=== PATIENT | male | born 1955 | race Caucasian/White ===

== ENCOUNTER → 2023-12-06 07:55 | Outpatient (REF) | payer BC, SELFPAY | LOC: RCS 07:55 | PROVIDERS: ATTENDING PHYSICIAN Internal Medicine Cardiovascular Disease; FAMILY PHYSICIAN Family Medicine | DX: I42.9 Cardiomyopathy, unspecified (principal); I44.7 Left bundle-branch block, unspecified | CPT/HCPCS: 93306 ==

== ENCOUNTER 2023-12-13 06:09 | Day surgery (SDC) | payer BC, SELFPAY ==
[2023-12-06 06:26] VITALS: BMI 26.2
[2023-12-06 07:15] LABS: % Eosinophils 10.3 % (0-6); % Immature Granulocytes 0.3 % (0-0.5); % Lymphocytes 27.9 % (20.5-51.1); % Monocytes 11.8 % (1.7-9.3); % Neutrophils 48.7 % (42.2-75.2); Absolute Eosinophils 0.4 10^3/uL (0-0.7); Absolute Lymphocytes 1.1 10^3/uL (1.2-3.4); Absolute Monocytes 0.5 10^3/uL (0.1-0.6); Absolute Neutrophils 1.9 10^3/uL (1.4-6.5); Hematocrit 38.9 % (39.0-52.0); Hemoglobin 13.7 g/dL (13.0-18.0); Mean Corp Hgb Conc. 35.2 g/dL (33.0-37.0); Mean Corpuscular Hgb 31.6 pg (27.0-31.0); Mean Corpuscular Volume 89.6 fL (80.0-94.0); Mean Platelet Volume 10.2 fL (7.4-10.4); Nucleated Red Blood Cells % 0 % (-); Platelet Count 175 10^3/uL (130-400); Red Blood Cell Count 4.34 10^6/uL (4.70-6.10); Red Cell Dist. Width 13.2 % (11.5-14.5)
[2023-12-06 07:40] LABS: ALT (SGPT) 34 U/L (0-50); AST (SGOT) 48 U/L (17-59); Albumin 4.1 g/dl (3.5-5.0); Alkaline Phosphatase 93 U/L (38-126); Blood Urea Nitrogen 17 mg/dl (9-20); Calcium 9.2 mg/dl (8.4-10.2); Carbon Dioxide 26 mmol/L (22-30); Chloride 106 mmol/L (98-107); Estimated Creatinine Clearance 116 ml/min; Glucose 100 mg/dl (70-99); Potassium 4.1 mmol/L (3.5-5.1); Sodium 139 mmol/L (135-145); Total Bilirubin 0.7 mg/dl (0.2-1.3); eGFR > 60.00
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
[2023-12-13 06:27] VITALS: BMI 23.7
[2023-12-13 06:40] VITALS: BP 141/78
--- NOTE | 2023-12-13 07:48 | W.ICD.CONTRA ---
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
-
History of VA?: No
LV Function
Left ventricular function study result?: Ejection Fraction >/= 40%
ACEI/ARB/ARNI
Patient already on ACEI/ARB/ARNI: No
ACEI/ARB/ARNI Not Indicated: Left Ventricular EF >/= 40%
Beta-Pauline
Patient already on Beta Pauline: Yes
[2023-12-13 08:51] VITALS: BP 122/82
[2023-12-13 09:06] VITALS: BP 131/79
[2023-12-13 09:21] VITALS: BP 128/73
--- NOTE | 2023-12-13 16:28 | ITS.CL.ICD ---
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
Implantable Cardioverter Defibrillator
Procedure Report:
Date of Procedure: December 13, 2023.
Procedures: ICD Pulse Generator Explantation and ICD Pulse Generator Implantation.
Indication: ICD at the elective replacement indicator. Heart failure with improved LVEF. At the time of ICD implant on 10/05/2014 the patient had a nonischemic dilated cardiomyopathy with class 2-3 systolic heart failure and an LV ejection fraction
of 20% on maximally tolerated medical regimen with a left bundle branch block (QRS duration 174 ms) with a duration of heart failure symptoms greater than 9 months.
Performing physician: Filiberto Koenig MD, [facility].
Implant: ICD Pulse Generator: Medtronic; Model# [id number]; Serial# [id number].
Explanted ICD Pulse Generator (Implanted 10/05/2014): Medtronic: Model# [id number]; Serial# [id number].
Retained Leads (Implanted 10/05/2014):
Atrial Lead: Medtronic: Model# [id number]; Serial# [id number].
Right Ventricular Lead: Medtronic; Model# [id number]; Serial# [id number].
Left Ventricular Lead: Medtronic; Model# 4298-88cm; Serial# [id number].
Technique: A time out was performed. The procedure site was identified. The patient was anesthetized by the anesthesia service. Preoperative cefazolin was administered prior to the skin incision. The patient was prepped and draped in the usual
fashion. Local anesthetic was applied to the left prepectoral subcutaneous tissue. A 3 inch incision was made over the pulse generator with the PlasmaBlade. The capsule was entered with PlasmaBlade cautery. The old ICD pulse generator was explanted.
No cautery was applied to the lead system. The leads were appropriately attached to the new ICD pulse generator. The pocket was irrigated with antibiotic solution. Hemostasis was excellent. The device and leads were placed in the pocket. The
incision was closed in three layers with absorbable suture. Steri-strips and an Aquacel dressing were applied. The estimated blood loss was less than 5 mL. There were no complications. No fluoroscopy was used.
Lead Analysis:
RA lead: P: 2.1 mV; Threshold: 0.75 V @ 0.4 ms; Impedance: 399 ohms.
RV lead: R: 20 mV; Threshold: 1 V @ 0.4 ms; Impedance: 418 ohms. HVB 74 ohms.
LV lead: Threshold 1.25 V @ 0.4 ms; Impedance: 893 ohms.
Final Programming: VT/VF 188 bpm; Javi: DDDR 50-130 bpm.
Conclusion: Uncomplicated ICD change. The ICD system is MRI safe/conditional.
Recommendation: Routine post ICD care.
cc: Paul Powell MD and Magalys Spencer MD.
== END 2023-12-13 09:45 | disposition home or self-care (01) ==
LOC: CATH 06:09
PROVIDERS: ATTENDING PHYSICIAN Internal Medicine Cardiovascular Disease; FAMILY PHYSICIAN Family Medicine; OTHER PHYSICIAN Internal Medicine Cardiovascular Disease
DX: I50.22 Chronic systolic (congestive) heart failure (principal); I44.7 Left bundle-branch block, unspecified; J43.9 Emphysema, unspecified; Z87.19 Personal history of other diseases of the digestive system; K57.90 Diverticulosis of intestine, part unspecified, without perforation or abscess without bleeding; M19.90 Unspecified osteoarthritis, unspecified site; M51.26 Other intervertebral disc displacement, lumbar region; Z87.891 Personal history of nicotine dependence; D72.819 Decreased white blood cell count, unspecified; I42.0 Dilated cardiomyopathy
CPT/HCPCS: 33264; 36415; 80053; 85025; 93005; C1882

== ENCOUNTER → 2024-04-07 16:48 | Outpatient (REF) | payer BC, SELFPAY | LOC: RAD 16:48 | PROVIDERS: ATTENDING PHYSICIAN Internal Medicine Critical Care Medicine; FAMILY PHYSICIAN Family Medicine | DX: R91.1 Solitary pulmonary nodule (principal) | CPT/HCPCS: 71250 ==

== ENCOUNTER → 2024-10-02 16:44 | Outpatient (REF) | payer BC, SELFPAY | LOC: RAD 16:44 | PROVIDERS: ATTENDING PHYSICIAN Nurse Practitioner Family; FAMILY PHYSICIAN Family Medicine | DX: M25.562 Pain in left knee (principal) | CPT/HCPCS: 73564 ==

== ENCOUNTER 2024-10-25 11:56 | Inpatient (IN) | payer BC, SELFPAY ==
[2024-10-25] VITALS (11 sets, daily range): BP systolic 133–180; BP diastolic 79–97; BMI 24.7; BMI 23.6
--- NOTE | 2024-10-25 09:15 | ED.GENMED ---
Addendum entered and electronically signed by Yudith Patton MD 10/25/24 10:23:
cardiology evaluated patient. recommended hosptialist admission, covid flu swab, and dc azithrymycin. discussed with hospitalist who accepted.
Original Note:
History of Present Illness
General
Chief Complaint: AICD Problem
Time Seen by Provider: 10/25/24 09:09
History of Present Illness
History of Present Illness:
Patient is a 69-year-old male with history of CHF with biventricular ICD placement presenting to the emergency department with possible AICD shock. Patient states that he was brushing his teeth and each time he picked up his [place]pik he felt a kick
to his chest. His defibrillator has never gone off. He is unsure what feels like. He denies any lightheadedness dizziness. No chest pain. No shortness of breath. He does state that he has been sick with bronchitis and was started on Z-Ady and
prednisone. He does state that he feels much better since the beginning of the symptoms
Past History
Past History
ED Past Medical History: None
ED Past Surgical History: None
Social History
Tobacco: Non-smoker
Personal:
Living: with family
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
Family History
Family History: Negative Early CAD
Phy Exam
Physical Exam
Physical Exam:
GENERAL: in no acute distress
HEENT: normocephalic, extraocular movements intact, moist oral mucosa
NECK: normal inspection
RESPIRATORY: no respiratory distress, clear to auscultation bilaterally
CARDIOVASCULAR: regular rate and rhythm
ABDOMEN/: soft, non-distended, non-tender to palpation, no rebound or guarding
EXTREMITIES: non-tender, no edema/swelling
NEUROLOGIC: awake and alert, moves all extremities
SKIN: warm
Course
Orders/Labs/Results
Orders:
Orders
10/25/24 09:07
EKG [Electrocardiogram (*1)] Urgent
Reason for Study: Palpitations
EKG- Treatment ONCE
10/25/24 09:11
Interrogate Pacemaker- Treatment ONCE
10/25/24 09:15
CR Chest Portable - 1 View Urgent
Comment:
Reason For Exam: aicd placement
Reason Study Needs to be Portable: Patient Unstable
10/25/24 09:30
Basic Metabolic Panel Urgent
Complete Blood Count/With Diff Urgent
Magnesium Urgent
Thyroid profile [TSH Reflex To Free T4] Urgent
10/25/24 09:54
Amiodarone [Cordarone] 150 mg Dextrose 5%/Water 100 ml [D5w] 100 ml IV NOW
10/25/24 10:00
Amiodarone [Cordarone] 900 mg DEXTROSE 5% PVC-free BAG [D5W PVC-free BAG] 500 ml IV PER PROTOCOL
Initial Dose in mg/min:: 1
Duration of initial dose (hours):: 6
Subsequent dose in mg/min:: 0.5
Duration of subsequent dose (hours):: 18
Maximum dose in mg/min:: 1
Hold and notify provider if:: Heart rate < 60 BPM or SBP < 90 mmHg or MAP < 60 mmHg
Abnormal Lab Results
10/25/24
09:30
WBC 12.2 H 10^3/uL
(4.8-10.8)
RBC 4.55 L 10^6/uL
(4.70-6.10)
MCH 31.4 H pg
(27.0-31.0)
Abs Immat Gran (auto) 0.1 H 10^3/uL
(0-0.05)
Absolute Neuts (auto) 8.5 H 10^3/uL
(1.4-6.5)
Absolute Monos (auto) 1.2 H 10^3/uL
(0.1-0.6)
Immature Gran % 1.0 H %
(0-0.5)
Lymphocytes % 17.7 L %
(20.5-51.1)
Monocytes % 10.2 H %
(1.7-9.3)
Creatinine 0.6 L mg/dL
(0.7-1.3)
Glucose 108 H mg/dl
(70-99)
10/25/24 09:30
10/25/24 09:30
Vital Signs
Initial and Last Documented VS:
Initial Vital Signs
Temp Pulse Resp BP Pulse Ox
97.5 F 76 16 163/91 98
10/25/24 09:03 10/25/24 09:03 10/25/24 09:03 10/25/24 09:03 10/25/24 09:03
Last Documented Vital Signs
Temp Pulse Resp BP Pulse Ox
97.5 F 76 16 163/91 98
10/25/24 09:03 10/25/24 09:03 10/25/24 09:03 10/25/24 09:03 10/25/24 09:03
MDM/Problems Addressed
Differential Diagnosis Includes:
Patient is a 69-year-old male with history of CHF status post biventricular ICD placement presenting to the emergency department with AICD shock. Vitals are notable for heart rate in the 70s and exam shows a well-appearing comfortable man with
clear breath sounds bilaterally. Concern for arrhythmia versus inappropriate shock such as device oversensing or mechanical malfunction. He did have his ICD replaced last year by Dr. Koenig. Will check blood work EKG chest x-ray and interrogate
device.
*Critical Care Note
Total Time (30-74mins, 75-104mins- exclusive of procedures): Not Applicable
Update Note
Update Note:
I did receive a call from [facility] saying that patient had a single episode of V. tach that required [address] Spencer from cardiology who recommended amnio bolus and drip and admission to the cardiology service. Blood work
normal. Thyroid pending.
Chest x-ray per my interpretation with normal lead placement. No obvious opacities to suggest pneumonia.
ED Attending Note
-
Portions of this chart may have been created with voice recognition software.� Occasional wrong word or��sound alike� substitutions may have occurred due to the inherent limitations of voice recognition software.
Discharge Plan
Departure
Patient Disposition: Admit
Date of Disposition: 10/25/24
Time of Disposition: 10:14
Presentation/result/management discussed w/ accepting MD/DO: cardiology
Discharge Problem:
V-tach
Prescriptions:
No Action
aspirin 81 MG tablet,delayed release (DR/EC)
81 mg PO DAILY Qty: 0 0RF
Rx Instructions:
HOLD aspirin until seen in office for wound check appointment
multivitamin Tablet
1 tab PO DAILY
ascorbic acid (vitamin C) [Vitamin C] 500 mg Tablet
500 mg PO DAILY
zinc
1 tab PO DAILY
carvedilol 6.25 mg Tablet
6.25 mg PO BID
ibuprofen 800 mg Tablet
800 mg PO Q8H PRN (Reason: pain)
promethazine-codeine 6.25-10 mg/5 mL Syrup
5 ml PO Q6H PRN (Reason: cough)
albuterol sulfate 90 mcg/actuation Hfa Aerosol Inhaler
2 puff INHALATION Q6H PRN (Reason: sob)
cephalexin 500 mg tablet
500 mg PO Q8H Qty: 3 0RF
Referrals:
Paul Powell MD [Family Provider] -
Interventions
Interventions:
*Risk Screen - Suicide Last Done: 10/25/24 09:03
*Neglect/Abuse Screening Last Done: 10/25/24 09:03
*ED COVID-19 Vaccine History Last Done: 10/25/24 09:11
Discharge Date and Time
Print Language: JAPANESE
[2024-10-25 09:54] LABS: % Basophils 0.3 % (0-2); % Eosinophils 0.8 % (0-6); % Lymphocytes 17.7 % (20.5-51.1); % Monocytes 10.2 % (1.7-9.3); Absolute Eosinophils 0.1 10^3/uL (0-0.7); Absolute Immature Granulocytes 0.1 10^3/uL (0-0.05); Absolute Lymphocytes 2.2 10^3/uL (1.2-3.4); Absolute Monocytes 1.2 10^3/uL (0.1-0.6); Absolute Neutrophils 8.5 10^3/uL (1.4-6.5); Hematocrit 40.9 % (39.0-52.0); Hemoglobin 14.3 g/dL (13.0-18.0); Mean Corpuscular Hgb 31.4 pg (27.0-31.0); Mean Corpuscular Volume 89.9 fL (80.0-94.0); Mean Platelet Volume 9.6 fL (7.4-10.4); Nucleated Red Blood Cells % 0 % (-); Platelet Count 250 10^3/uL (130-400); Red Blood Cell Count 4.55 10^6/uL (4.70-6.10); Red Cell Dist. Width 12.5 % (11.5-14.5); White Blood Cell Count 12.2 10^3/uL (4.8-10.8)
[2024-10-25 10:06] LABS: Blood Urea Nitrogen 10 mg/dl (9-20); Calcium 9.6 mg/dl (8.4-10.2); Carbon Dioxide 26 mmol/L (22-30); Chloride 104 mmol/L (98-107); Estimated Creatinine Clearance 122 ml/min; Glucose 108 mg/dl (70-99); Magnesium 1.9 mg/dl (1.6-2.3); Potassium 3.9 mmol/L (3.5-5.1); Sodium 138 mmol/L (135-145); eGFR > 60.00
[2024-10-25] MEDS: CORDARONE 518 MG IV (10:25)
[2024-10-25] MEDS: CORDARONE 103 MG IV (10:29)
[2024-10-25 11:08] LABS: Free T4 1.06 ng/dl (0.78-2.19)
[2024-10-25 11:09] LABS: COVID-19 Antigen Negative (Negative)
--- NOTE | 2024-10-25 11:41 | HPS.HSE ---
Family Physician
-
Family Physician: Paul Powell
Chief Complaint
-
Defibrillator shock
History of Present Illness
Patient is a 69-year-old male who had an abnormal EKG 11 years ago and after workup was found to have a cardiomyopathy with an ejection fraction of 20% which required a defibrillator placement at that time. He has had no issues for the past 11
years and does not even know what the shock of the defibrillator would feel like. Today while brushing his teeth he had 2 episodes of feeling like he was kicked in the chest stating that his defibrillator went off. He has never had any previous
issues. Defibrillator interrogation showed 2 episodes of V. tach. He denied chest pain or shortness of breath. Of note, he was fighting an upper respiratory infection and has had a cough all week. Saturday he was started on a azithromycin and
Saturday started a prednisone taper. He is being admitted for evaluation of his defibrillator shocks and V. tach.
Medical History
Past Medical History
Past Medical History: Reports Other
Additional Past Medical History:
Chronic obstructive pulmonary disease along with pulmonary nodules from [facility] in 2020
Cardiomyopathy with an ejection fraction of 20%--of note, he denies any heart failure symptoms.
Past Surgical History: Reports Other
Additional Past Surgical History:
Unknown
Social History
Tobacco: Former Smoker (Quit 25 years ago)
Alcohol: Daily (Patient states that he drinks a couple beers per day)
Drug: None
Personal:
Living: With Family
Family History
Family History: Other (Mother has heart issues, father of prostate cancer)
Allergies / Home Medications
Allergies reflects when Allergies were last updated in [email or web address].
Home Medications with original date entered in [email or web address]
Allergy/Medication List:
Allergies
Allergy/AdvReac Type Severity Reaction Status Date / Time
No Known Allergies Allergy Verified 10/25/24 09:02
Home Medications
aspirin 81 mg tablet,delayed release 81 mg PO DAILY ##0 10/06/14
ascorbic acid (vitamin C) 500 mg tablet (Vitamin C) 500 mg PO DAILY 12/03/23
multivitamin 1 tab PO DAILY 12/03/23
zinc 1 tab PO DAILY 12/03/23
albuterol sulfate 90 mcg/actuation aerosol inhaler 2 puff inhalation Q6H PRN sob 12/13/23
carvedilol 6.25 mg tablet 6.25 mg PO BID 12/13/23
cephalexin 500 mg tablet 500 mg PO Q8H #3 tabs 12/13/23 --not taking
ibuprofen 800 mg tablet 800 mg PO Q8H PRN pain 12/13/23
promethazine 6.25 mg-codeine 10 mg/5 mL syrup 5 ml PO Q6H PRN cough 12/13/23--not taking
does give him vitamin D during the winter months
Started on azithromycin (Z-Ady and prednisone taper) Saturday and Saturday respectively
Medication list has not been reconciled--I myself did go over medications with him
Review of Systems
-
History Source: Patient
A 12 point ROS was completed and negative except as noted: Yes
Constitutional: Reports No Symptoms
EENT: Reports No Symptoms
Respiratory: Reports Cough
Cardiac: Reports No Symptoms and Other (Defibrillator shock); Denies Chest Pain or Diaphoresis
Abdomen/GI: Reports No Symptoms
: Reports No Symptoms
Musculoskeletal: Reports No Symptoms
Skin: Reports No Symptoms
Neurological: Reports No Symptoms; Denies Dizzy or Headache
Psych: Reports No Symptoms
Physical Exam
Vital Signs
Vital Signs
Temp Pulse Resp BP Pulse Ox
97.5 F 67 16 140/85 95
10/25/24 09:03 10/25/24 10:30 10/25/24 10:30 10/25/24 10:00 10/25/24 10:30
Physical Exam
General: Well Developed, Well Nourished and No Apparent Distress
HEENT: NormoCephalic and Anicteric; No Oxygen
Respiratory: Clear; No Wheezes, Rales or Rhonchi
Cardiac: S1/S2 and Regular Rhythm; No Murmur
GI: Soft, Non Tender, Non Distended and Normal Bowel Sounds
Musculoskeletal: No Clubbing, No Cyanosis and No Edema
Skin: Warm
Neuro: Awake
Psych: Calm
Laboratory Results
-
10/25/24 09:30
10/25/24 09:30
Impression/Plan
-
Patient is a 69-year-old male
V. tach with defibrillator shock--interrogation reveals V. tach as mentioned, appreciate cardiology--admit to IVU--starting amiodarone drip--cardiac cath tomorrow
Recent upper respiratory infection--stop azithromycin--continue prednisone taper with albuterol nebs as needed--would hold on any antibiotic therapy as this is likely viral
Cardiomyopathy with ejection fraction of 20%--presumed ischemic, although this was 11 years ago--patient does not have any symptoms of heart failure with reduced ejection fraction (swelling, shortness of breath) and in fact he is not on a diuretic
at baseline--follow for now
COPD/pulmonary nodule--from COVID 2020--does see pulmonary here if needed
DVT prophylaxis--Lovenox
CODE STATUS--full code
--- NOTE | 2024-10-25 11:45 | CON.CAR ---
Consultation
Consultation Request
Date/Time Consultation Requested: 10/25/24
Date/Time Consultation Performed: 10/25/24
Requesting Provider: Dr. Becerra
Performing Provider: Dr. Spencer (primary railway head tender as well)
Reason for Consultation: Electric shock and just
Medical History
-
Chief Complaint: Electric shock in his chest x 2 this morning
History of Present Illness:
69-year-old gentleman with a past medical history of nonischemic cardiomyopathy with recovered ejection fraction, BiV ICD, and prior left bundle branch block was in his usual state of health until last week when he had fatigue, subjective fever and
cough productive of thick sputum at times. He saw his primary care doctor in evaluation and was started on azithromycin. This was done on Saturday, however he still had symptoms so was started on a set prednisone taper yesterday. He denies any
orthopnea, PND, chest pain or lower extremity edema. This morning while brushing his teeth with an electronic toothbrush he felt a electric shock in his chest that then repeated several seconds later. He perceived this to be his defibrillator
firing. Currently, he is feeling better without any complaints of chest pain, shortness of breath. He finally started to feel better from a cough standpoint when he started his steroid taper.
Past Medical History
Past Medical History: CHF (Nonischemic cardiomyopathy r with recovered EF) and COPD
Past Surgical History: Other (Medtronic BiV ICD)
Social History
Tobacco: Former Smoker
Alcohol: Daily (Couple of beers a day)
Living: With Family
Family History
Family History: Reviewed & Not Pertinent
Allergies / Home Medications
Allergy/AdvReac Type Severity Reaction Status Date / Time
No Known Allergies Allergy Verified 10/25/24 09:02
�Medication �Instructions �Recorded �Confirmed �Type
aspirin 81 mg tablet,delayed 81 mg PO DAILY ##0 10/06/14 12/13/23 Rx
release
ascorbic acid (vitamin C) 500 mg 500 mg PO DAILY 12/03/23 12/13/23 History
tablet (Vitamin C)
multivitamin 1 tab PO DAILY 12/03/23 12/13/23 History
zinc 1 tab PO DAILY 12/03/23 12/13/23 History
albuterol sulfate 90 mcg/actuation 2 puff inhalation Q6H PRN sob 12/13/23 12/13/23 History
aerosol inhaler
carvedilol 6.25 mg tablet 6.25 mg PO BID 12/13/23 12/13/23 History
cephalexin 500 mg tablet 500 mg PO Q8H #3 tabs 12/13/23 Rx
ibuprofen 800 mg tablet 800 mg PO Q8H PRN pain 12/13/23 12/13/23 History
promethazine 6.25 mg-codeine 10 5 ml PO Q6H PRN cough 12/13/23 12/13/23 History
mg/5 mL syrup
Review of Systems
-
All other systems: Negative unless noted
Physical Exam
Vital Signs
Temp Pulse Resp BP Pulse Ox
97.5 F 65 24 144/96 96
10/25/24 09:03 10/25/24 11:15 10/25/24 11:34 10/25/24 11:00 10/25/24 11:15
Lab Results
10/25/24 09:30
10/25/24 09:30
Physical Exam
General: Well Developed, Well Nourished, No Apparent Distress, Comfortable and Respiratory Distress
HEENT: Normocephalic and Anicteric
Respiratory: Clear and Non Labored Respirations; Negative Wheezes, Crackles or Rhonchi
Cardiac: S1/S2 and Regular Rhythm; Negative Murmur, Rub or Peripheral Edema
GI: Non Tender and Non Distended
Neuro: AO x 3
Impression / Plan
-
69-year-old gentleman with past medical history of recovered nonischemic cardiomyopathy with a BiV ICD, prior his left bundle branch block and recent treatment for acute bronchitis with Z-Ady and prednisone presented with defibrillation x 2 this
morning.
#VT status post 2 appropriate ICD shocks:
-this is a threat to his life
-Will start IV bolus and amiodarone drip
-Azithromycin may have been contributing, would avoid moving forward
-Keep K and mag replete, will check mag
-N.p.o. after midnight for cardiac catheterization.
-Echo
#NICMY:
-no CHF
-Will update echo
-will increase bb
-further GDMT based on echo
# URI:
-would defer treatment to medicine
-please avoid azithromycin
Data Reviewed
-
EKG: Tracing Personally Visualized and interpreted (EKG shows a sensed ventricular paced) and Other (Device interrogation shows ventricular tachycardia appropriately treated needing 2 shocks to be treated.)
Radiology: Image Personally Visualized and interpreted (BiV ICD with leads in place no infiltrate or heart failure)
--- NOTE | 2024-10-25 14:49 | PTCARENOTE ---
Patient received from ED. Amino gtt infusing RAC #[id number]. Denies pain. V-paced on telemetry HR 80, BP 165/82 95% on room air. Occasional moist cough, lungs clear. Troponin and EKG collected. Eating lunch, call patel in reach
[2024-10-25 15:37] LABS: Troponin I 0.309 ng/ml
--- NOTE | 2024-10-25 15:54 | PTCARENOTE ---
troponin 0.309, Dr. Becerra notified
--- NOTE | 2024-10-25 16:09 | PTCARENOTE ---
IV placed in right forearm for amiodarone gtt, removed previous IV in right AC
[2024-10-25] MEDS: DELTASONE 40 MG PO (16:13)
[2024-10-25] MEDS: LOVENOX 40 MG SC (17:42)
[2024-10-25 18:31] LABS: Troponin I 0.215 ng/ml
[2024-10-25] MEDS: COREG 6.25 MG PO (19:59)
[2024-10-25 20:46] LABS: Troponin I 0.132 ng/ml
--- NOTE | 2024-10-25 21:04 | PTCARENOTE ---
Received pt @ change of shift. AAOx3. BP elevated (172/97), other VSS. Amio gtt running @ 0.5 mg/min (16.7 mL/hr) through right forearm. Discussed plan of care for evening/morning. Verbalizes understanding of NPO @ midnight for cath in AM. Call patel
within reach.
[2024-10-26] VITALS (14 sets, daily range): BP systolic 101–161; BP diastolic 67–95; BMI 23.9
[2024-10-26] MEDS: VENTOLIN NEBULES 1.25 MG INH (01:40)
[2024-10-26] MEDS: ROBITUSSIN AC 5 ML PO (02:02)
[2024-10-26 03:06] LABS: Hemoglobin 13.6 g/dL (13.0-18.0); Mean Corp Hgb Conc. 34.9 g/dL (33.0-37.0); Mean Corpuscular Hgb 31.7 pg (27.0-31.0); Mean Corpuscular Volume 90.9 fL (80.0-94.0); Mean Platelet Volume 10.3 fL (7.4-10.4); Platelet Count 253 10^3/uL (130-400); Red Blood Cell Count 4.29 10^6/uL (4.70-6.10); Red Cell Dist. Width 12.5 % (11.5-14.5); White Blood Cell Count 10.6 10^3/uL (4.8-10.8)
[2024-10-26 03:28] LABS: ALT (SGPT) 36 U/L (0-50); Albumin 3.7 g/dl (3.5-5.0); Calcium 9.4 mg/dl (8.4-10.2); Carbon Dioxide 23 mmol/L (22-30); Chloride 101 mmol/L (98-107); HDL Cholesterol 84 mg/dl; Potassium 4.6 mmol/L (3.5-5.1); Sodium 132 mmol/L (135-145)
[2024-10-26 03:38] LABS: AST (SGOT) 44 U/L (17-59); Alkaline Phosphatase 107 U/L (38-126); Blood Urea Nitrogen 13 mg/dl (9-20); Estimated Creatinine Clearance 122 ml/min; Glucose 132 mg/dl (70-99); LDL Cholesterol, Calculated 101 mg/dl; Total Bilirubin 0.6 mg/dl (0.2-1.3); Total Cholesterol 196 mg/dl (50-199); Total Protein 6.9 g/dl (6.3-8.2); Triglyceride 55 mg/dl (10-149); Very Low Density Lipoprotein 11 mg/dl (0-30); eGFR > 60.00
[2024-10-26] MEDS: ASPIR LOW (ENTERIC COATED) 81 MG PO (08:54)
[2024-10-26] MEDS: THERAGRAN 1 TABLET PO (08:54)
[2024-10-26] MEDS: VITAMIN C 500 MG PO (08:54)
[2024-10-26] MEDS: COREG 6.25 MG PO (08:54)
[2024-10-26] MEDS: DELTASONE 40 MG PO (08:54)
[2024-10-26 09:06] LABS: Glycohemoglobin (HgbA1c) 5.3 % (4.0-5.6)
--- NOTE | 2024-10-26 09:40 | W.PN.CD ---
Today's Communication / Plan
-
Cardiac catheterization.
Echocardiogram.
Continue amiodarone.
Increase carvedilol to 12.5 mg BID.
Impression / Plan
-
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
defibrillation x 2 for VT (ICD interrogated).
#VT status post 2 appropriate ICD shocks:
-Acute, this is a threat to his life.
-Troponin 0.309 --> 0.215 --> 0.132.
-Continue amiodarone drip.
-Azithromycin may have been contributing, would avoid moving forward.
-Echocardiogram pending.
#NICMO:
-Recovered per prior echo.
-No CHF.
-Echocardiogram pending.
-Increase carvedilol to 12.5 mg BID.
-Further GDMT based on echo.
#URI:
-Acute, recovering.
-Defer treatment to medicine.
-Avoid azithromycin (contributor to VT?).
Subjective/Interval History:
No acute events.
No subjective complaints.
Hypertensive overnight (up to 180/87).
DATA:
Transthoracic Echocardiogram, 12/06/2023:
Normal left ventricular size, wall thickness and systolic function. No regional
wall motion abnormalities are seen. LV ejection fraction is 55-60% . Normal
diastolic function.
Mild mitral regurgitation.
Mild tricuspid regurgitation.
Mildly dilated aortic root ( 3.9cm)
Compared to the previous echo 12/10/23 the findings are similar. Images reviewed
and prior aortic root measuring 3.8cm
Cardiac Catheterization, 07/12/2014:
LEFT VENTRICULOGRAPHY: Moderate global hypokinesis with EF 32%
CORONARY ANGIOGRAPHY
Dominance: Right
Left Main: Normal
LAD: Normal
Circumflex: Normal
RCA: Dominant vessel with mild luminal irregularities
Physical Exam
Vital Signs/Labs
Vital Signs
Temp Pulse Resp BP Pulse Ox
36.4 C 73 18 128/88 95
10/26/24 08:02 10/26/24 08:54 10/26/24 08:02 10/26/24 08:54 10/26/24 08:02
10/24/24 10/25/24 10/26/24
11:59 11:59 11:59
Actual Weight 80.286 kg 77.6 kg
10/26/24 02:20
10/26/24 02:20
Magnesium 1.9 mg/dl (1.6-2.3) 10/25/24 09:30
Triglycerides 55 mg/dl (10-149) 10/26/24 02:20
LDL Cholesterol, Calc 101 mg/dl 10/26/24 02:20
VLDL Cholesterol, Calc 11 mg/dl (0-30) 10/26/24 02:20
HDL Cholesterol 84 mg/dl 10/26/24 02:20
Free T4 1.06 ng/dl (0.78-2.19) 10/25/24 09:30
LAB Results
10/25/24 10/25/24 10/25/24
14:35 17:36 20:10
Troponin I 0.309 H* 0.215 H* D 0.132 H* D
Physical Exam
Constitutional: No acute distress and Comfortable
EENT: Anicteric and Moist mucous membranes
Cardiovascular: Rhythm & rate is regular, Pedal edema is absent, JVD pressure is normal, S1S2 is normal and Murmur/rub/gallop absent
Respiratory: Respiratory effort normal, Lungs clear to auscul., Wheeze Absent, Crackles Absent and Rhonchi Absent
GI: Soft, Distention absent, Flat and Normal bowel sounds
Neuro/Psych: AO x 3
Data Reviewed
-
Date of Service: October 26, 2024
Medical Decision Making: Reviewed Test Results, Independent Historian Assessment and Test Interpretation
EKG: Tracing Personally Visualized and interpreted and Report Reviewed by me
X-Ray/CT/US/MRI/NUC/PET: Image Personally Visualized and interpreted and Report Reviewed by me
Medical Tests (PFT, Pathology etc): Image Personally Visualized and interpreted and Report Reviewed by me
Labs: Labs Reviewed by me
Old Records: Reviewed
--- NOTE | 2024-10-26 10:12 | PTCARENOTE ---
pt off unit for ccl.
--- NOTE | 2024-10-26 10:40 | W.PN.UPDATE ---
Update Note
Progress Note Update
EP Consult Note Dicteated
- ICD shocks were for rapid monomorphic VT at 240 ms (250 bpm). ATP not successful, moved on to shocks. First shock did not convert, VT stopped just prior to ICD shock (the shock is a committed shock upon re-detection of failed first shock, NORMAL
device function.
- Move to PO Amio
- Lets see what cath and echo show to decide on duration of Amiodarone
- We may favor just 3-6 months of Amio.
--- NOTE | 2024-10-26 10:47 | ITS.CL.CATH ---
[facility] [employer] - Catheterization
Cardiac Catheterization
Procedure Report:
CARDIAC CATHETERIZATION REPORT
Date of Procedure: 10/26/2024
Referring: Magalys Spencer M.D.
INDICATION: Ventricular tachycardia with ICD shock x 2.
PROCEDURE:
1. Left heart catheterization.
2. Coronary angiography.
A total of 20 minutes of procedural/moderate sedation was utilized. An independent director of medical education was present to assist with and help manage the patient's level of consciousness and physiologic status.
ACCESS:
1. 6 [place] right radial artery using a modified Seldinger technique.
CATHETERS:
1. 5 [place] JR4.
2. 5 [place] JL 3.5.
HEMODYNAMIC DATA
Weight (kg): 77.6
AO (s/d/x, mmHg): 119/71/91
LV (s/x mmHg): 121/10
LEFT VENTRICULOGRAPHY: Not performed.
CORONARY ANGIOGRAPHY
Dominance: Right.
Left Main: Normal size, bifurcating vessel. There is no coronary artery disease.
LAD: Large size vessel giving rise to 3 diagonals. D1 and D2 are relatively small vessels. D3 is a large vessel supplying a significant portion of the distal anterolateral wall. There is no coronary artery disease.
Ramus: Congenitally absent.
Circumflex: Medium size, nondominant vessel that is essentially a single obtuse marginal supplying the basal lateral wall. There are minor luminal irregularities.
RCA: Enormous, dominant vessel with an anterior takeoff and a large posterolateral arcade supplying the entire inferior and inferior lateral wall. There are minor luminal irregularities in the proximal vessel.
INTERVENTION(S)
None.
Closure Device: Vascular band.
Radiation (mGy): 202.03
DAP (cm2.Gy): 18.5978
Fluoroscopy time (minutes): 1.8
CONCLUSIONS
1. Right dominant circulation with minor luminal irregularities in the and normal right coronary artery.
2. No ischemic nidus for ventricular tachycardia.
3. Normal filling pressures (LVEDP = 10 mmHg at 77.6 kg).
RECOMMENDATIONS:
1. Expectant management after cardiac catheterization via right radial approach.
2. Limited weight bearing on the right wrist for one week.
3. OMT/GDMT as hemodynamics tolerate.
4. Consultation with EP regarding optimal strategy including continued medical management versus EP study for ablation.
5. Avoid macrolide antibiotics.
Copy to: Magalys Spencer M.D., Paul Powell M.D.
Vladimir Walls DO, FACC, FACP
[2024-10-26] MEDS: PACERONE 400 MG PO ×2 (12:04→19:39)
--- NOTE | 2024-10-26 13:07 | W.PN.HOSP.TC ---
Addendum entered and electronically signed by Tenisha Arroyo MD 10/26/24 13:58:
I saw and evaluated the patient. I reviewed the resident�s note and agree with findings and plan as documented in the resident�s note.
A/P:
# Ventricular tachycardia status post 2 ICD shocks
s/p cardiac catheterization 10/26 which was unrevealing
Follow echo
off amiodarone drip, transitioned to PO amiodarone
Cont carvedilol 12.5 mg BID
Avoid azithromycin going forward
# Upper respiratory infection, suspect viral
No fever, chills, dyspnea, nasal congestion, sore throat, cough
Continue on prednisone with taper
DC further azithromycin
Original Note:
Today's Communication/Plan
-
- Continue to monitor patient for any cardiac complications
Assessment / Plan
Assessment / Plan
Ventricular tachycardia status post 2 ICD shocks:
-No palpitations, dizziness, shortness of breath, chest discomfort, fatigue, altered mental status, syncope, signs of shock
- Patient underwent cardiac catheterization which was normal
- Still awaiting echo
- Continue on amiodarone drip, carvedilol 12.5 Mg p.o. twice daily, Lovenox 40, aspirin 81
- Avoid azithromycin going forward
- Troponins on admission were 0.309 then 0.215 then finally 0.132 and downtrending
- No CHF clinical features
Upper respiratory infection:
- No fever, chills, dyspnea, nasal congestion, sore throat, cough
- Continue on prednisone 30 Mg, monitor for side effects
DVT prophylaxis-Lovenox
Full code
Anticipated Discharge: 24 - 48 hours
Subjective/Interval History
-
Date of Service: October 26, 2024
Patient is a 69-year-old male who had an abnormal EKG 11 years ago and after workup was found to have a cardiomyopathy with an ejection fraction of 20% which required a defibrillator placement at that time. while brushing his teeth he had 2 episodes
of feeling like he was kicked in the chest stating that his defibrillator went off. He has never had any previous issues. Defibrillator interrogation showed 2 episodes of V. tach. He denied chest pain or shortness of breath. Saturday he was
started on a azithromycin and Saturday started a prednisone taper for a URI. He is being admitted for evaluation of his defibrillator shocks and V. tach.
Patient underwent cardiac cath and awaiting echo.
No acute medical complaints.
Objective Data
-
Labs:
Laboratory Results
10/26/24
02:20
WBC 10.6
Hgb 13.6
Hct 39.0
Plt Count 253
Sodium 132 L
Potassium 4.6
Chloride 101
Carbon Dioxide 23
BUN 13
Creatinine 0.6 L
Glucose 132 H
Calcium 9.4
Total Bilirubin 0.6
AST 44
ALT 36
Alkaline Phosphatase 107
Vital Signs:
Vital Signs
Temp Pulse Resp BP Pulse Ox
98.1 F 75 20 145/76 93
10/26/24 10:44 10/26/24 12:04 10/26/24 10:44 10/26/24 12:04 10/26/24 10:44
I&O
10/25/24 10/26/24 10/27/24
06:59 06:59 06:59
Intake Total 1070 / 1070
Balance 1070 / 1070
Review of Systems
-
All other systems: Reviewed and negative
Physical Exam
-
General: Well Developed
Respiratory: Clear to Auscultation; Negative Wheezes, Rales or Rhonchi
Cardiac: Regular Rhythm and S1/S2; Negative Murmur or Tachycardic
GI: Soft, Nontender, Nondistended and Normal Bowel Sounds
Musculoskeletal: No Clubbing, No Cyanosis and No Edema
Skin: Warm and Dry
Neuro: Awake, Alert, Oriented and AO x 3
Psych: Calm
Data Reviewed
-
Labs: Labs Reviewed by me and Discussed with Physician
--- NOTE | 2024-10-26 14:33 | CM ---
Reviewed chart. Met with and Mrs. Norris to review discharge plans. He states prior to admission he resides with his spouse in a two story home with one step to enter. He states he has a full flight of steps to get to bedroom. He states he
has a full bathroom on each level. He states prior to admission he was independent with ambulation and adls. He states he does not have any DME in the home. He states he has a prescription plan and uses [facility]. Medical work-up in progress.
The discharge plan is to return home with his spouse when medically stable.
[2024-10-26] MEDS: LOVENOX 40 MG SC (17:21)
--- NOTE | 2024-10-26 17:47 | PTCARENOTE ---
pt continues to be paced on the monitor, hr in the 70s, vss. pt offers no complaints at this time. right radial band removed. dressing is cdi. pt denies pain at this time. pt ambulating in room and tolerating well. pt educated on plan of care and pt
verbalized understanding. call patel within reach.
[2024-10-26] MEDS: COREG 12.5 MG PO (19:38)
[2024-10-26 19:57] LABS: Hepatitis C Antibody Negative (Negative)
--- NOTE | 2024-10-26 20:00 | SUR.OPER ---
Received pt @ change of shift. AAOx3. VSS. Right radial site clean, dry, and intact. No swelling, ecchymosis. Soft to touch. Discussed plan of care for evening. Pt verbalizes understanding. Call patel within reach.
[2024-10-27 04:01] VITALS: BP 125/77
[2024-10-27 04:19] VITALS: BMI 23.9
[2024-10-27 04:28] LABS: Hematocrit 39.4 % (39.0-52.0); Hemoglobin 13.6 g/dL (13.0-18.0); Mean Corp Hgb Conc. 34.5 g/dL (33.0-37.0); Mean Corpuscular Hgb 31.7 pg (27.0-31.0); Mean Corpuscular Volume 91.8 fL (80.0-94.0); Platelet Count 237 10^3/uL (130-400); Red Blood Cell Count 4.29 10^6/uL (4.70-6.10); Red Cell Dist. Width 12.6 % (11.5-14.5); White Blood Cell Count 13.6 10^3/uL (4.8-10.8)
[2024-10-27 04:56] LABS: Blood Urea Nitrogen 15 mg/dl (9-20); Calcium 9.4 mg/dl (8.4-10.2); Carbon Dioxide 26 mmol/L (22-30); Chloride 104 mmol/L (98-107); Estimated Creatinine Clearance 105 ml/min; Glucose 98 mg/dl (70-99); Potassium 4.3 mmol/L (3.5-5.1); Sodium 137 mmol/L (135-145); eGFR > 60.00
--- NOTE | 2024-10-27 06:37 | PTCARENOTE ---
Pt rested all night without incident.
[2024-10-27 07:34] VITALS: BP 133/89
[2024-10-27] MEDS: ASPIR LOW (ENTERIC COATED) 81 MG PO (07:56)
[2024-10-27] MEDS: DELTASONE 30 MG PO (07:56)
[2024-10-27] MEDS: PACERONE 400 MG PO (07:56)
[2024-10-27] MEDS: VITAMIN C 500 MG PO (07:56)
[2024-10-27] MEDS: COREG 12.5 MG PO (07:56)
[2024-10-27] MEDS: THERAGRAN 1 TABLET PO (07:56)
--- NOTE | 2024-10-27 08:47 | W.PN.CD ---
Today's Communication / Plan
-
- Amio 200mg tabs 2 tabs BID for 14 more days then 200 mg daily for 5.5 months => then stop AMIO and watch
- Home also on increased Coreg 12.5 bid with plans to increase to 25 BID when Amio stopped
- OK for home
- If BP needs more treatment makes sense to use RAAS-I (ASHLEY-I/ARB/ARNI) and or MRA in future
- Our office will reach out for f/u
Impression / Plan
-
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
x 2 for VT (ICD interrogated).
Sustained monomorphic VT, S/p appropriate ICD therapy
- Amio 200mg tabs 2 tabs BID for 14 more days then 200 mg daily for 5.5 months => then stop AMIO and watch
- Home also on increased Coreg 12.5 bid with plans to increase to 25 BID when Amio stopped
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
- Perhaps his viral illness and meds used to treat it caused the VT. Will try and avoid azythromycin unless that med is the only med for a future illness... he has back up ICD
Nonischemic myocardial injury resulting in minimal troponin elevation from the rapid VT/ICD shockes
- peak trop 0.309, first troponin drawn
HFimproved/recoveredEF
- Responded very well to BiV pacing/[employer]
- Prior to ICD QRS was wide LBBB QRS I recall close to 176 ms
URI
-Acute, recovering.
-Defer treatment to medicine.
-Avoid azithromycin (contributor to VT?) as able
Elevated Blood pressure
- Now on increased Coreg, monitor over time
- IF BP needs more treatment makes sense to use RAAS-I and or MRA in future
Subjective/Interval History:
Feels well. OK for home
Cath and echo this admission were both very good.
Physical Exam
Vital Signs/Labs
Vital Signs
Temp Pulse Resp BP Pulse Ox
97.4 F 58 16 133/89 95
10/27/24 07:34 10/27/24 08:15 10/27/24 07:34 10/27/24 07:34 10/27/24 07:34
10/26/24 10/27/24 10/28/24
06:59 06:59 06:59
Actual Weight 77.6 kg 77.7 kg
10/27/24 04:09
10/27/24 04:09
Magnesium 1.9 mg/dl (1.6-2.3) 10/25/24 09:30
Triglycerides 55 mg/dl (10-149) 10/26/24 02:20
LDL Cholesterol, Calc 101 mg/dl 10/26/24 02:20
VLDL Cholesterol, Calc 11 mg/dl (0-30) 10/26/24 02:20
HDL Cholesterol 84 mg/dl 10/26/24 02:20
Free T4 1.06 ng/dl (0.78-2.19) 10/25/24 09:30
LAB Results
10/25/24 10/25/24 10/25/24
14:35 17:36 20:10
Troponin I 0.309 H* 0.215 H* D 0.132 H* D
Physical Exam
Constitutional: No acute distress
EENT: Anicteric
Cardiovascular: Rhythm & rate is regular and Pedal edema is absent
GI: Soft and Distention absent
Neuro/Psych: Alert and Oriented
Data Reviewed
-
Date of Service: October 27, 2024
--- NOTE | 2024-10-27 10:22 | CM ---
Reviewed chart. Met with Mr. Norris to review discharge plans. He states he is feeling well and maybe able to go home soon. Prior to admission he resides wit his spouse in a two story home with one step to enter. He he has a full flight of steps
to get to bedroom. He has a full bathroom on each floor. Prior to admission he was independent with ambulation and adls. He does not have any DME in the home. He has a prescription plan and uses [facility]. Medical work-up in progress. The
discharge plan is to return home with his spouse when medically stable.
[2024-10-27 11:52] VITALS: BP 120/69
--- NOTE | 2024-10-27 14:38 | PTCARENOTE ---
IV and tele removed. Discharge instructions reviewed w/ pt and spouse and verbalizes understanding. Belongings collected and sent home w/ pt. Escorted via WC and staff assist. D/c to home with spouse.
--- NOTE | 2024-10-27 15:29 | W.PN.HOSP.TC ---
Addendum entered and electronically signed by Tenisha Arroyo MD 10/27/24 15:47:
I saw and evaluated the patient. I reviewed the resident�s note and agree with findings and plan as documented in the resident�s note.
A/P:
# Ventricular tachycardia status post 2 ICD shocks
s/p cardiac catheterization 10/26 which was largely unrevealing
Follow echo this admission: 70% ejection fraction, and stage 1 diastolic dysfunction
off amiodarone drip, transitioned to PO amiodarone: 400 mg bid for 14 days then 200 mg once daily for 5.5 months then stop
Cont carvedilol 12.5 mg BID with plan to increase to 25 mg bid once amiodarone is stopped
Avoid azithromycin going forward
# Upper respiratory infection, suspect viral,
URI symptoms resolved
DC further azithromycin
Total DC time 40 minutes
Original Note:
Today's Communication/Plan
-
- discharged
Assessment / Plan
Assessment / Plan
Ventricular tachycardia status post 2 ICD shocks:
-No palpitations, dizziness, shortness of breath, chest discomfort, fatigue, altered mental status, syncope, signs of shock
- cardiac catheterization which was normal
- echo 70% ejection fraction, and stage 1 diastolic dysfuntion
- Continue on amiodarone 400 mg bid for 14 days then 200 mg once daily for 5.5 months then stop, carvedilol 12.5 Mg p.o then start 25 mg bid once amiodarone is stopped, aspirin 81
- Avoid azithromycin going forward
- F/u cardiology outpatient
Upper respiratory infection:
- No fever, chills, dyspnea, nasal congestion, sore throat, cough
- resolved
DVT prophylaxis-Lovenox
Full code
Anticipated Discharge: Today
Subjective/Interval History
-
Date of Service: October 27, 2024
No acute medical complaints today.
Patient had cardiac catheterization yesterday, echo was performed and showed 70% ejection fraction.
Objective Data
-
Labs:
Laboratory Results
10/27/24
04:09
WBC 13.6 H
Hgb 13.6
Hct 39.4
Plt Count 237
Sodium 137
Potassium 4.3
Chloride 104
Carbon Dioxide 26
BUN 15
Creatinine 0.7
Glucose 98
Calcium 9.4
Vital Signs:
Vital Signs
Temp Pulse Resp BP Pulse Ox
97.9 F 64 16 120/69 93
10/27/24 11:52 10/27/24 14:00 10/27/24 11:52 10/27/24 11:52 10/27/24 11:52
I&O
10/26/24 10/27/24 10/28/24
06:59 06:59 06:59
Intake Total 1070 / 1070 400 / 400
Output Total 200 / 200
Balance 1070 / 1070 200 / 200
Review of Systems
-
All other systems: Reviewed and negative
Physical Exam
-
General: Well Developed
Respiratory: Clear to Auscultation; Negative Wheezes, Rales or Rhonchi
Cardiac: Regular Rhythm and S1/S2; Negative Murmur or Tachycardic
GI: Soft, Nontender, Nondistended and Normal Bowel Sounds
Musculoskeletal: No Clubbing, No Cyanosis and No Edema
Skin: Warm and Dry
Neuro: Awake, Alert, Oriented and AO x 3
Psych: Calm
Data Reviewed
-
Labs: Labs Reviewed by me and Discussed with Physician
--- NOTE | 2024-10-27 17:15 | W.DCSUMMARY ---
Documented by User: Manolo Zavaleta MD, Resident 10/27/24 17:56
Discharge Summary
Discharge Data
Date of Admission: 10/25/24
Date of Discharge: 10/27/24
-
Pending Results: No
Hospital Course
Discharging Physician : Dr. Tenisha Arroyo and Dr. Manolo Zavaleta
Disposition : Home
Principal Discharge diagnosis : Ventricular tachycardia-resolved, Acute Bronchitis-resolved
Chronic Discharge diagnosis :
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
for VT (ICD interrogated).
Problem #1: Sustained monomorphic Ventricular Tachycardia- On admission had elevated troponin level of .309 which trended down to 0.132 on discharge. ICD interrogation showed Ventricular tachycardia. On admission, placed on amiodarone drip, aspirin,
and increased carvedilol dosage from 6.5mg to 12.5 mg. Serial EKG's on 10-25-24 to 10-26-24 showed normal sinus rhythm. Echocardiogram showed EF of 70%. Cardiac catheterization on 10/26/24/ was normal. Suspect preceding viral illness plus
Azithromycin to have caused ventricular tachycardia, advised patient to avoid Azithromycin or any other Qtc prolonging drugs going forward. Discharged on 400 mg amiodarone bid x 14 days then 200mg once daily for 5.5 months then stop, carvedilol 12.5
mg daily increased to 25mg bid once amiodarone is stopped and aspirin 81. Cardiology follow up on 11/04/24.
Problem #2: Presented on 10/25/24 with symptoms of acute bronchitis actively being treated with steroids and azithromycin prescribed by primary care provider the week prior. Azithromycin discontinued on admission. Continued on Prednisone in ED which
was stopped on discharge as clinical symptoms had resolved.
Important imaging findings :
Chest x-ray for source 10/26/23:
IMPRESSION:
Left-sided cardiac device with intact wires.No pneumothorax.
EKG 10/25/24:
Atrial-sensed ventricular-paced rhythm
ABNORMAL ECG
WHEN COMPARED WITH ECG OF 06-DEC-2023 06:49,
ELECTRONIC VENTRICULAR PACEMAKER HAS REPLACED SINUS RHYTHM
EKG :
NORMAL SINUS RHYTHM
LEFT AXIS DEVIATION
NON-SPECIFIC INTRA-VENTRICULAR CONDUCTION BLOCK
MINIMAL VOLTAGE CRITERIA FOR LVH, MAY BE NORMAL VARIANT ( [employer] product )
INFERIOR INFARCT (CITED ON OR BEFORE 25-OCT-2024)
POSSIBLE ANTEROLATERAL INFARCT (CITED ON OR BEFORE 25-OCT-2024)
ABNORMAL ECG
WHEN COMPARED WITH ECG OF 25-OCT-2024 20:01,
NO SIGNIFICANT CHANGE WAS FOUND
Procedure findings :
Cardiac catheterization 10/26/24:
CONCLUSIONS
1. Right dominant circulation with minor luminal irregularities in the and normal right coronary artery.
2. No ischemic nidus for ventricular tachycardia.
3. Normal filling pressures (LVEDP = 10 mmHg at 77.6 kg).
Discharge Plan
-
Patient Disposition: Home (Routine Discharge)
Discharge Diagnosis/Procedures: ICD shock for ventricular tachycardia;
status post cardiac catheterization on 10/26/24;
recent upper respiratory tract infection
Condition: Good
Diet: Low Cholesterol
Activity: As tolerated
Driving Restrictions: Not until seen by your Dr
Bathing Restrictions: None
Stand Alone Forms: DC Instructions- Cath/EP Lab
Referrals:
Paul Powell MD [Family Provider] - in less than 1 week
Lisa Aguero CRNP [Specified Professional Personl] - 11/04/24 1:40 pm (Cardiology followup appointment)
Additional Discharge Medication Instructions: Amiodarone 400 mg (2 tablets) twice daily for 14 days then 200 mg daily for 5.5 month then stop
Coreg dose increased to 12.5 mg twice daily, this will be increased to 25 mg twice a day when Amiodarone is stopped
Prescriptions:
New
carvedilol 12.5 mg Tablet
12.5 mg PO BID Qty: 30 0RF
amiodarone 200 mg Tablet
400 mg PO BID Qty: 60 0RF
Continued
ibuprofen 800 mg Tablet
800 mg PO Q8HPRN PRN (Reason: mild pain)
albuterol sulfate 90 mcg/actuation Hfa Aerosol Inhaler
2 puff INHALATION Q6H PRN (Reason: sob)
therapeutic multivitamin Tablet
1 tab PO DAILY Qty: 0 0RF
aspirin 81 MG tablet,delayed release (DR/EC)
81 mg PO DAILY Qty: 0 0RF
Discontinued
carvedilol 6.25 mg Tablet
6.25 mg PO BID
azithromycin 250 mg Tablet
250 mg PO DAILY
methylprednisolone 4 mg Tablets,Dose Pack
0 mg PO PER PKG DIR
Discharge Orders:
Discharge Patient (As Directed); Ordered 10/27/24
Ordered By: Manolo Zavaleta
Care Plan Goals
Care Plan Goals:
Problem: Readiness for enhanced knowledge related to diagnosis and treatment plan
Goal: Understand your diagnosis and treatment plan needs, including medications if applicable.
Instructions: Know your diagnosis, underlying causes and treatment plan options, including medications if applicable. Consult with your health care team to learn about your diagnosis and treatment plan, including medications if applicable.
Discharge Date and Time
Discharge Date/Time: 10/27/24 14:39
Print Language: GHANAIAN

Documented by User: Tenisha Arroyo MD 10/28/24 08:07
Discharge Summary
Discharge Data
Date of Admission: 10/25/24
Date of Discharge: 10/27/24
Hospital Course
Discharging Physician : Dr. Tenisha Arroyo and Dr. Manolo Zavaleta
Disposition : Home
Principal Discharge diagnosis : Ventricular tachycardia-resolved, Acute Bronchitis-resolved
Hospital Course : 69-year-old gentleman with past medical history of recovered nonischemic cardiomyopathy with a BiV ICD implanted 11 years ago and recent treatment for acute bronchitis with Z-Ady and prednisone, presented with ICD
shock/defibrillation x 2 for VT (ICD interrogated).
Problem #1: Sustained monomorphic Ventricular Tachycardia. ICD interrogation showed Ventricular tachycardia. He was initially placed on amiodarone drip, and increased carvedilol dosage from 6.5mg to 12.5 mg. Echocardiogram showed EF of 70%. He
underwent cardiac catheterization on 10/26/24 which was unrevealing. Suspect preceding viral illness plus Azithromycin to have caused ventricular tachycardia. Patient was advised to avoid Azithromycin or any Qtc prolonging drugs going forward. He was
discharged on 400 mg amiodarone bid x 14 days then 200mg once daily for 5.5 months then stop; carvedilol at 12.5 mg daily would be increased to 25mg bid once amiodarone is stopped. He can continue aspirin 81 mg. He has cardiology follow up on
11/04/24.
Problem #2: Presented on 10/25/24 with symptoms of acute bronchitis actively being treated with steroids and azithromycin prescribed by primary care provider the week prior. Azithromycin discontinued this admission. Prednisone was discontinued during
this admission.
Important imaging findings :
Chest x-ray for source 10/26/23:
== END 2024-10-27 14:39 | disposition home or self-care (01) | DRG 287 ==
LOC: IVU 11:56
PROVIDERS: Internal Medicine Cardiovascular Disease; Nurse Practitioner; ADMITTING PHYSICIAN Internal Medicine; ATTENDING PHYSICIAN Internal Medicine; CONSULT PHYSICIAN Internal Medicine Cardiovascular Disease; EMERGENCY PHYSICIAN Student in an Organized Health Care Education/Training Program; FAMILY PHYSICIAN Family Medicine
PROC: 4B02XTZ Measurement of Cardiac Defibrillator, External Approach (ICD-10-PCS; 2024-10-25)
PROC: B2111ZZ Fluoroscopy of Multiple Coronary Arteries using Low Osmolar Contrast (ICD-10-PCS; 2024-10-26)
PROC: 4A023N7 Measurement of Cardiac Sampling and Pressure, Left Heart, Percutaneous Approach (ICD-10-PCS; 2024-10-26)
DX: I47.29 Other ventricular tachycardia (principal); I5A Non-ischemic myocardial injury (non-traumatic); J20.9 Acute bronchitis, unspecified; Z95.810 Presence of automatic (implantable) cardiac defibrillator; J06.9 Acute upper respiratory infection, unspecified; I44.7 Left bundle-branch block, unspecified; J44.89 Other specified chronic obstructive pulmonary disease; Z86.16 Personal history of COVID-19; Z87.891 Personal history of nicotine dependence; Z80.42 Family history of malignant neoplasm of prostate; Z79.82 Long term (current) use of aspirin; I50.9 Heart failure, unspecified; Z79.899 Other long term (current) drug therapy; Z11.52 Encounter for screening for COVID-19
CPT/HCPCS: 71045; 80048; 80053; 80061; 83036; 83735; 84439; 84443; 84484; 85025; 85027; 86803; 87502; 87811; 93005; 93289; 93306; 93458; 94640; 96374; 99152; 99285; C1769; C1894; Q9967

== ENCOUNTER 2025-03-22 06:26 | Day surgery (SDC) | payer BC, SELFPAY | END 2025-03-22 11:37 | disposition home or self-care (01) | LOC: GI 06:26 | PROVIDERS: ATTENDING PHYSICIAN Internal Medicine Gastroenterology | DX: K29.70 Gastritis, unspecified, without bleeding (principal); K20.90 Esophagitis, unspecified without bleeding; K22.9 Disease of esophagus, unspecified; K22.89 Other specified disease of esophagus; R05.3 Chronic cough | CPT/HCPCS: 43239; 88305; 88342 ==

== ENCOUNTER → 2025-05-25 14:56 | Outpatient (REF) | payer BC, SELFPAY | LOC: RAD 14:56 | PROVIDERS: ATTENDING PHYSICIAN Internal Medicine Critical Care Medicine; FAMILY PHYSICIAN Family Medicine | DX: R91.1 Solitary pulmonary nodule (principal) | CPT/HCPCS: 71250 ==